=== PATIENT | female | born 1950 | race Caucasian/White ===

== ENCOUNTER 2023-03-04 15:11 | Outpatient (AMB) | payer MEDICARE, SELFPAY ==
--- NOTE | 2023-03-04 15:16 | HO.NEPHOV_ITS ---
HPI HPI Comments History of Present Illness Details I had the privilege of seeing Betsy in follow-up for hypertension. She recently has seen Dr. Hernandez but wants me to take over and continue her care for management of her hypertension. She had been seeing me for long years prior to just one visit to Dr. Hernandez. At that visit he asked her to come off clonidine which she was uncomfortable about. Her antihypertensive medication regimen has not been changed for long years and she was questioning why he was asking her to, clonidine. Even though she skip 1 dose of it, she went back on it and maintain her hold antihypertensive medication regimen with which her blood pressure continues to be at goal. She has no side effects from the medications. She maintains a low-sodium diet. She does not have any chest pain, shortness of breath, proximal nocturnal dyspnea, orthopnea, pedal edema, nausea, vomiting or diarrhea. Her weight has been stable. Her renal functions had been normal. She is compliant with her medications. She feels well at this office visit. [facility] Medical History (Updated 03/06/23 @ 08:57 by Oswaldo Warner MD) Hypercalcemia Hypertension Surgical History (Updated 03/04/23 @ 15:26 by Elizabeth Butler MA) History of hysterectomy History of hip replacement Family History (Updated 03/04/23 @ 15:27 by Elizabeth Butler MA) Mother Cancer Pacemaker Father Cancer Social History (Updated 03/04/23 @ 15:26 by Elizabeth Butler MA) Alcohol intake: current Comment: Occasionally Patient Tobacco Use Status: Never used Tobacco Vital Signs 03/04/23 15:22 Height 4 ft 9 in Weight 234 lb 4 oz BMI 50.7 BP 130/70 Blood Pressure Location Lt brachial Position Sitting Pulse 68 Pulse Source Pulse Oximeter Physical Exam Vital Signs: Last Vital Signs Pulse 68 03/04/23 15:22 BP 130/70 03/04/23 15:22 BMI result Body Mass Index 50.7 Const General: comfortable and no acute distress Orientation/consciousness: patient oriented x3 HEENT Head: Yes normocephalic Mouth: Normal oral and palatal mucosa present Eyes EOM: EOMs intact bilaterally Neck Neck: Yes supple Resp Auscultation: clear to auscultation bilaterally Cardio Jugular venous distension: no JVD Rate: regular rate GI Palpation (GI): Soft to palpation Auscultation: normal bowel sounds General: Yes no CVA tenderness Back/Spine/Pelvis Back: no CVA tenderness Skin General skin exam: no rashes or lesions noted Neuro General: patient oriented x3 and moves all extremities Extrem General: Yes no pedal edema Assessment & Plan Assessment & Plan (1) Hypertension: Code(s): I10 - Essential (primary) hypertension Qualifiers: Hypertension type: primary hypertension Qualified Code(s): I10 - Essential (primary) hypertension Plan Betsy has longstanding hypertension and has been well controlled on her medication regimen for long years. I reiterated that she should continue on her current blood pressure medication regimen as there was no change indicated. She has no orthostatic symptoms or side effects from it. Her blood pressure has been at goal at home. When I checked her blood pressure again in the office it was 120/80 mmHg. She has no proteinuria, edema and has normal renal functions. She would clearly benefit from some weight loss. She maintains on low-sodium diet. I did not make any medication changes today. She had a lot of concerns during this visit which were all addressed promptly. She wants to continue her care with me and does not want to go to . I said to her its her choice and only her choice. I agreed to be part of her medical care, if she wishes to be that way. Time spent retrieving data, patient encounter and documented 24 minutes. Follow-up given. Orders: Orders Electrolytes 03/04/23 I10 - Essential (primary) hypertension Creatinine 03/04/23 I10 - Essential (primary) hypertension Blood Urea Nitrogen 03/04/23 I10 - Essential (primary) hypertension Coding Level of Care Code Est Pt Level 4 (27206) Diagnoses Primary hypertension I10 Hypertension type: primary hypertension Results Reviewed Nephrology Results: No Data to Display
[2023-03-04 15:22] VITALS: BP 130/70; PULSE 68; BMI 50.7
== END 2023-03-04 15:58 | disposition home or self-care (01) ==
PROVIDERS: PCP Internal Medicine; Visit Provider Internal Medicine Nephrology
DX: I10 Essential (primary) hypertension (principal)
CPT/HCPCS: 99214

== ENCOUNTER → 2023-03-04 15:11 | Outpatient (BNVA) | payer MEDICARE, SELFPAY | PROVIDERS: PCP Internal Medicine; Visit Provider Internal Medicine Nephrology | DX: I10 Essential (primary) hypertension (principal) | CPT/HCPCS: 99212 ==

== ENCOUNTER 2023-09-07 13:35 | Outpatient (AMB) | payer MEDICARE, SELFPAY ==
--- NOTE | 2023-09-07 13:37 | HO.NEPHOV_ITS ---
Vital Signs 09/07/23 14:01 Height 4 ft 9 in Weight 221 lb BMI 47.8 BP 122/60 Blood Pressure Location Rt brachial Position Sitting Pulse 56 Pulse Source Pulse Oximeter Pulse Oximetry (%) 99 Oxygen Delivery Method Room Air Intake Visit Reasons: 6 Months/ Conf Software Quality Assurance Analyst Required: No Accompanied by: Self / Same As Patient Allergies cephalexin Allergy (Verified 09/07/23 14:03) Unknown nickel Allergy (Verified 09/07/23 14:03) Unknown HPI Comments Details: I had the privilege of seeing Betsy in follow-up for hypertension. Her antihypertensive medication regimen has not been changed for long years. Her blood pressure continues to be at goal. She has no side effects from the medications. She maintains a low-sodium diet. She does not have any chest pain, shortness of breath, proximal nocturnal dyspnea, orthopnea, pedal edema, nausea, vomiting or diarrhea. Her weight has been stable. Her renal functions had been normal. She is compliant with her medications. She feels well at this office visit. [facility] Medical History (Updated 03/06/23 @ 08:57 by Oswaldo Warner MD) Hypercalcemia Hypertension Surgical History History of hysterectomy History of hip replacement Family History Mother Cancer Pacemaker Father Cancer Social History Alcohol intake: current Comment: Occasionally Patient Tobacco Use Status: Never used Tobacco Physical Exam Vital Signs: Last Vital Signs Pulse 56 09/07/23 14:01 BP 122/60 09/07/23 14:01 Pulse Ox 99 09/07/23 14:01 Oxygen Delivery Method Room Air 09/07/23 14:01 BMI result Body Mass Index 47.8 Const General: comfortable and no acute distress Orientation/consciousness: patient oriented x3 HEENT Head: Yes normocephalic Mouth: Normal oral and palatal mucosa present Eyes EOM: EOMs intact bilaterally Neck Neck: Yes supple Resp Auscultation: clear to auscultation bilaterally Cardio Jugular venous distension: no JVD Rate: regular rate GI Palpation (GI): Soft to palpation Auscultation: normal bowel sounds General: Yes no CVA tenderness Back/Spine/Pelvis Back: no CVA tenderness Skin General skin exam: no rashes or lesions noted Neuro General: patient oriented x3 and moves all extremities Results Reviewed Nephrology Results: No Data to Display Assessment & Plan Assessment & Plan (1) Hypertension: Code(s): I10 - Essential (primary) hypertension Category: Medical Qualifiers: Hypertension type: primary hypertension Qualified Code(s): I10 - Essential (primary) hypertension Plan Betsy has longstanding hypertension and has been well controlled on her medication regimen for long years. I reiterated that she should continue on her current blood pressure medication regimen as there was no change is indicated. She has no orthostatic symptoms or side effects from it. Her blood pressure has been at goal at home. She has no proteinuria, edema and has normal renal functions. She would clearly benefit from some weight loss. She maintains on low-sodium diet. I did not make any medication changes today. Follow-up given Coding Level of Care Code Est Pt Level 4 (53683) Diagnoses Primary hypertension I10 Hypertension type: primary hypertension
[2023-09-07 14:01] VITALS: BP 122/60; PULSE 56; O2SAT 99; BMI 47.8
== END 2023-09-07 15:09 | disposition home or self-care (01) ==
PROVIDERS: PCP Internal Medicine; Visit Provider Internal Medicine Nephrology
DX: I10 Essential (primary) hypertension (principal)
CPT/HCPCS: 99214

== ENCOUNTER → 2023-09-07 13:35 | Outpatient (BNVA) | payer MEDICARE, SELFPAY | PROVIDERS: PCP Internal Medicine; Visit Provider Internal Medicine Nephrology | DX: I10 Essential (primary) hypertension (principal) | CPT/HCPCS: 99212 ==

== ENCOUNTER 2024-03-07 09:12 | Outpatient (AMB) | payer MEDICARE, SELFPAY ==
[2024-03-07 09:38] VITALS: BP 128/70; PULSE 50; O2SAT 99; BMI 43.4
--- NOTE | 2024-03-07 09:38 | HO.NEPHOV_ITS ---
Vital Signs 03/07/24 09:38 Height 4 ft 9 in Weight 200 lb 8 oz BMI 43.4 BP 128/70 Blood Pressure Location Rt brachial Position Sitting Pulse 50 Pulse Source Pulse Oximeter Pulse Oximetry (%) 99 Oxygen Delivery Method Room Air Intake Visit Reasons: Hypertension/ 6 MO FU Public Health Worker Required: No Accompanied by: Self / Same As Patient Allergies cephalexin Allergy (Verified 03/07/24 09:41) Unknown nickel Allergy (Verified 03/07/24 09:41) Unknown HPI Comments Details: Betsy was seen in follow-up for hypertension. Her antihypertensive medication regimen has not been changed for long years. Her blood pressure continues to be at goal. She has no side effects from the medications. She maintains a low- sodium diet. She does not have any chest pain, shortness of breath, proximal nocturnal dyspnea, orthopnea, pedal edema, nausea, vomiting or diarrhea. Her weight has been stable. Her renal functions had been normal. She is compliant with her medications. She feels well at this office visit. [facility] Medical History (Updated 03/06/23 @ 08:57 by Oswaldo Warner MD) Hypercalcemia Hypertension Surgical History History of hysterectomy History of hip replacement Family History Mother Cancer Pacemaker Father Cancer Social History Alcohol intake: current Comment: Occasionally Patient Tobacco Use Status: Never used Tobacco Review of Systems Const All systems reviewed & are unremarkable except as noted in HPI and below Physical Exam Vital Signs: Last Vital Signs Pulse 50 03/07/24 09:38 BP 128/70 03/07/24 09:38 Pulse Ox 99 03/07/24 09:38 Oxygen Delivery Method Room Air 03/07/24 09:38 BMI result Body Mass Index 43.4 Const General: comfortable and no acute distress Orientation/consciousness: patient oriented x3 HEENT Head: Yes normocephalic Mouth: Normal oral and palatal mucosa present Eyes EOM: EOMs intact bilaterally Neck Neck: Yes supple Resp Auscultation: clear to auscultation bilaterally Cardio Jugular venous distension: no JVD Rate: regular rate GI Palpation (GI): Soft to palpation Auscultation: normal bowel sounds General: Yes no CVA tenderness Back/Spine/Pelvis Back: no CVA tenderness Skin General skin exam: no rashes or lesions noted Neuro General: patient oriented x3 and moves all extremities Extrem General: Yes no pedal edema Results Reviewed Nephrology Results: No Data to Display Assessment & Plan Assessment & Plan (1) Hypertension: Code(s): I10 - Essential (primary) hypertension Category: Medical Qualifiers: Hypertension type: primary hypertension Qualified Code(s): I10 - Essential (primary) hypertension Plan Betsy has longstanding hypertension and has been well controlled on her medication regimen for long years. I reiterated that she should continue on her current blood pressure medication regimen as there was no change is indicated. She has no orthostatic symptoms or side effects from it. Her blood pressure has been at goal at home. She has no proteinuria, edema and has normal renal functions. She would clearly benefit from some weight loss. She maintains on low-sodium diet. I did not make any medication changes today. Follow-up given Orders: Orders Creatinine 7 Months I10 - Essential (primary) hypertension Protein Creatinine Ratio, Ur 7 Months I10 - Essential (primary) hypertension Electrolytes 7 Months I10 - Essential (primary) hypertension Blood Urea Nitrogen 7 Months I10 - Essential (primary) hypertension Coding Level of Care Code Est Pt Level 4 (53869) Diagnoses Primary hypertension I10 Hypertension type: primary hypertension
== END 2024-03-07 09:57 | disposition home or self-care (01) ==
PROVIDERS: PCP Internal Medicine; Visit Provider Internal Medicine Nephrology
DX: I10 Essential (primary) hypertension (principal)
CPT/HCPCS: 99214

== ENCOUNTER → 2024-03-07 09:12 | Outpatient (BNVA) | payer MEDICARE, SELFPAY | PROVIDERS: PCP Internal Medicine; Visit Provider Internal Medicine Nephrology | DX: I10 Essential (primary) hypertension (principal) | CPT/HCPCS: 99212 ==

== ENCOUNTER 2024-10-03 11:27 | Outpatient (AMB) | payer MEDICARE, SELFPAY ==
[2024-10-03 11:56] VITALS: BP 130/62; PULSE 50; O2SAT 96; BMI 41.8
--- NOTE | 2024-10-03 11:56 | HO.NEPHOV ---
Vital Signs 10/03/24 11:56 Height 4 ft 9 in Weight 193 lb BMI 41.8 BP 130/62 Blood Pressure Location Lt brachial Position Sitting Pulse 50 Pulse Source Pulse Oximeter Pulse Oximetry (%) 96 Oxygen Delivery Method Room Air Intake Visit Reasons: Hypertension-Conf Dry Cell And Battery Assembler Required: No Accompanied by: Self / Same As Patient Allergies cephalexin Allergy (Verified 10/03/24 11:58) Unknown nickel Allergy (Verified 10/03/24 11:58) Unknown HPI Comments Details: Betsy was seen in follow-up for hypertension. Her antihypertensive medication regimen has not been changed for long years. Her blood pressure continues to be at goal. She has no side effects from the medications. She maintains a low-sodium diet. She does not have any chest pain, shortness of breath, proximal nocturnal dyspnea, orthopnea, pedal edema, nausea, vomiting or diarrhea. Her weight has been stable. Her renal functions had been normal. She is compliant with her medications. She feels well at this office visit. [facility] Medical History (Updated 03/06/23 @ 08:57 by Oswaldo Warner MD) Hypercalcemia Hypertension Surgical History History of hysterectomy History of hip replacement Family History Mother Cancer Pacemaker Father Cancer Social History Alcohol intake: current Comment: Occasionally Patient Tobacco Use Status: Never used Tobacco Review of Systems Const All systems reviewed & are unremarkable except as noted in HPI and below Physical Exam Vital Signs: Last Vital Signs Pulse 50 10/03/24 11:56 BP 136/62 10/03/24 11:56 Pulse Ox 96 10/03/24 11:56 Oxygen Delivery Method Room Air 10/03/24 11:56 BMI result Body Mass Index 41.8 Const General: comfortable and no acute distress Orientation/consciousness: patient oriented x3 HEENT Head: Yes normocephalic Mouth: Normal oral and palatal mucosa present Eyes EOM: EOMs intact bilaterally Neck Neck: Yes supple Resp Auscultation: clear to auscultation bilaterally Cardio Jugular venous distension: no JVD Rate: regular rate GI Palpation (GI): Soft to palpation Auscultation: normal bowel sounds General: Yes no CVA tenderness Back/Spine/Pelvis Back: no CVA tenderness Skin General skin exam: no rashes or lesions noted Neuro General: patient oriented x3 and moves all extremities Extrem General: Yes no pedal edema Assessment & Plan Assessment & Plan (1) Hypertension: Code(s): I10 - Essential (primary) hypertension Category: Medical Qualifiers: Hypertension type: primary hypertension Qualified Code(s): I10 - Essential (primary) hypertension Plan Betsy has longstanding hypertension and has been well controlled on her medication regimen for long years. I reiterated that she should continue on her current blood pressure medication regimen as there was no change is indicated. She has no orthostatic symptoms or side effects from it. Her blood pressure has been at goal at home. She has no proteinuria, edema and has normal renal functions. She would clearly benefit from some weight loss. She maintains on low-sodium diet. I did not make any medication changes today. Follow-up given Orders: Orders Creatinine 8 Months I10 - Essential (primary) hypertension Electrolytes 8 Months I10 - Essential (primary) hypertension Protein Creatinine Ratio, Ur 8 Months I10 - Essential (primary) hypertension Blood Urea Nitrogen 8 Months I10 - Essential (primary) hypertension Coding Level of Care Code Est Pt Level 4 (85527) Diagnoses Primary hypertension I10 Hypertension type: primary hypertension
--- OUTSIDE RECORDS SUMMARY | 2024-10-03 12:41 | XMS_ITS | Clinical Summary ---
Author Organization [facility] Facility Address [address] [address] Care Team Providers Care Insurance Loss Adjuster Name Role Phone Giovani Dorado MD Primary Care Provider [phone] Allergies Active Allergy Reactions Criticality Noted Date Comments Cephalexin Rash Low 01/13/2021 Nickel Other (see comments) 01/13/2021 Medications allopurinol (ZYLOPRIM) 100 MG tablet Take 1 tablet by mouth 1 (one) time each day 09/03/2013 Active cloNIDine (CATAPRES) 0.1 MG tablet Take 1 tablet by mouth 2 (two) times a day Active hydroCHLOROthia zide 25 MG tablet Take 1 tablet by mouth every morning Active NIFEdipine CC (ADALAT CC) 30 MG 24 hr tablet Take 1 tablet by mouth 1 (one) time each day 06/08/2014 Active atorvastatin (LIPITOR) 40 MG tablet Take 40 mg by mouth 1 (one) time each day Active Multiple Vitamins-Minera ls (CENTRUM SILVER 50+WOMEN PO) Take by mouth Active metoprolol tartrate (LOPRESSOR) 100 MG tablet Take 100 mg by mouth in the morning and 100 mg in the evening. 06/30/2022 Active valsartan (DIOVAN) 80 MG tablet Take 80 mg by mouth 1 (one) time each day 06/30/2022 Active Active Problems Problem Noted Date Diagnosed Date Degenerative joint disease involving multiple yovani ints 09/08/2022 History of malignant neoplasm of endometrium Hypercalcemia 09/08/2022 Family history of cancer of colon 02/03/2022 H/O: metabolic disorder 02/03/2022 Hyperuricemia 02/03/2022 Benign essential hypertension 01/13/2021 Edema 05/14/2010 Electrocardiogram abnormal 12/10/2008 Overview (02/03/2022): anterior ID by EKG Hypertensive disorder 12/10/2008 Resolved Problems Problem Noted Date Diagnosed Date Resolved Date Leg swelling symptom 09/07/2022 023 H/O: osteoarthritis 02/03/2022 09/08/19 23 History of clinical finding in subject 02/03/2022 09/07/2022 History of total hip arthroplasty 02/03/2022 09/07/2022 Hypercholesterolemia 02/03/2022 023 Impaired glucose tolerance 02/03/2022 0 09/07/2022 Internal hemorrhoids 02/03/2022 023 Overview (02/03/2022): colo 2019 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 02/03/2022 09/07/2022 Severe obesity 02/03/2022 09/07/2022 Obstructive sleep apnea syndrome 02/03/2022 09/07/2022 Osteoarthritis of hip 02/03/20222022 Photodermatitis 02/03/2022 09/07/2022 Polyp of colon 02/03/2022 09/07/2022 Overview (02/03/2022): colo 2019 Prerenal azotemia 05/14/2010 09/07/2022 Lung cyst 01/10/2009 09/07/2022 H/O: ear disorder 12/10/2008 09/07/2022 Neck pain 12/10/2008 09/07/2022 Shoulder pain 12/10/2008 09/07/2022 Immunizations Immunization Administration Dates Next Due Influenza Whole 11/29/2020, 0,01/02/2019,12/16/2010 ,12/18/2009,12/10/2008 Moderna SARS-COV-2 02/02/2021,06/24/2020, 021 Pfizer SARS-COV-2 05/28/2020 Pneumococcal Conjugate 13-Valent 10/22/2014 Pneumococcal Polysaccharide 03/04/2014, 4 Td, Unspecified 07/02/2022 Tdap 10/30/2018,12/10/2008 Zoster 11/23/2014 Family History Medical History Relation Comments Cancer Father Gout Father Hypertension Father Stroke Father Cancer Mother Dementia Mother Gout Mother Heart disease Mother Hypertension Mother Relation Status Comments Father Mother Social History Tobacco Use Types Packs/Day Years Used Date Smoking Tobacco: Never Smokeless Tobacco: Never Tobacco Cessation:Counseling Given: No Alcohol Use Standard Drinks/Week Comments Yes 0 (1 standard drink = 0.6 oz pure alcohol) Alcoholic Drinks/day: Occasional social drink Comments Unknown Sex and Gender Information Value Date Recorded Sex Assigned at Not on file Legal Sex Female 5:08 PM EST Gender Identity Not on file Sexual Orientation Not on file Last Filed Vital Signs Vital Sign Reading Time Taken Comments Blood Pressure 110/60 03/02/2023 1:07 PM EST Pulse 48 03/02/2023 1:07 PM EST Temperature - - Respiratory Rate - - Oxygen Saturation 95% 01/14/2021 1:09 PM EDT Inhaled Oxygen Concentration - - Weight 108 kg (237 lb) 03/02/2023 1:07 PM EST Height 149.9 cm (4' 11 ) 11/14/2019 12:00 PM EDT Body Mass Index 47.87 11/14/2019 12:00 PM EDT Plan of Treatment Health Maintenance Due Date Last Done Comments Breast Cancer Screening 1950 Colorectal Cancer Screening: Annual FOBT 1997 Colorectal Cancer Screening: Colonoscopy 1997 Colorectal Cancer Screening: Sigmoidoscopy 1997 Influenza Vaccine (#1) 2024 , 12/11/2019, 01/02/2019, Additional history exists Pneumococcal Vaccine: 50+ Years Completed 10/22/2014, 03/04/2014, 10/22/2013 Pneumococcal Vaccine: Peds (0 to 5 Years) and At-Risk Patients (6 to 49 Years) Discontinued 10/22/2014, 03/04/2014, 10/22/2013 Hepatitis B Vaccine Aged Out No longe r eligible based on patient's age to complete this topic Insurance * Guarantor: Betsy Huggins Account Type Relation to Patient Date of Phone Billing Address Personal/Family Self 1950 [address] [place] [id number] [facility] Medicare [facility] Medicare Care Teams Insurance Loss Adjuster Relationship Specialty Start Date End Date Giovani Dorado MD NANCY MALIK MAT MAKER [address] [place] [address] NANCY MALIK MA PCP - General 04/07/20
== END 2024-10-03 12:19 | disposition home or self-care (01) ==
LOC: HO.HKA 11:28
PROVIDERS: PCP Internal Medicine; Visit Provider Internal Medicine Nephrology
DX: I10 Essential (primary) hypertension (principal)
CPT/HCPCS: 99214

== ENCOUNTER → 2024-10-03 11:27 | Outpatient (BNVA) | payer MEDICARE, SELFPAY | PROVIDERS: PCP Internal Medicine; Visit Provider Internal Medicine Nephrology | DX: I10 Essential (primary) hypertension (principal) | CPT/HCPCS: 99212 ==